=== PATIENT | male | born 1995 | race Caucasian/White ===

== ENCOUNTER 2017-01-24 22:15 | Emergency (ER) | payer SELFPAY ==
[2017-01-24 22:53] LABS: BASOPHILS % (AUTO) 1 % (0-3); EOSINOPHILS % (AUTO) 2 % (0-9); HEMATOCRIT 50 % (39-53); MEAN CORPUSCULAR HGB CONC 35.2 gm/dl (32.0-36.0); MEAN CORPUSCULAR VOLUME 83 fL (80-100); MONOCYTES % (AUTO) 6.6 % (0-12); NEUTROPHILS % (AUTO) 43.9 % (37-80)
[2017-01-24 23:04] LABS: APPEARANCE,URINE Slightly Cloudy; BILIRUBIN,URINE NEGATIVE (NEGATIVE); COLOR,URINE Yellow; GLUCOSE, URINE (UA) NEGATIVE (NEGATIVE); KETONES,URINE NEGATIVE (NEGATIVE); LEUKOCYTE ESTERASE ,URINE NEGATIVE (NEGATIVE); NITRATE,URINE NEGATIVE (NEGATIVE); OCCULT BLOOD,URINE NEGATIVE (NEG-TRACE); PH,URINE 6.5
[2017-01-24 23:11] LABS: METHADONE NEGATIVE (NEGATIVE); TRICYCLIC ANTIDEPRESSANTS NEGATIVE (NEGATIVE)
[2017-01-24 23:12] LABS: AMPHETAMINES NEGATIVE (NEGATIVE); METHAMPHETAMINES NEGATIVE (NEGATIVE); OPIATES(OP13) NEGATIVE (NEGATIVE); OXYCODONE(OXY) NEGATIVE (NEGATIVE); PROPOXYPHENE(PPX) NEGATIVE (NEGATIVE)
[2017-01-24 23:15] LABS: RBC,URINE NEG (0-3AV/HPF); WBC,URINE 0-1 (0-5AV/HPF)
[2017-01-24 23:16] LABS: ALBUMIN 4.3 gm/dl (3.4-5.0); ALT 19 IU/L (14-63); CALCIUM 9.1 mg/dl (8.5-10.1); GLOM FILT RATE 118 mL/min (>60); POTASSIUM 4.4 mMol/L (3.5-5.1); SALICYLATE < 2.8 mg/dl (2.8-30.0); SODIUM 144 mMol/L (136-145); THYROID STIMULATING HORMONE 1.702 uIU/ml (0.358-3.740)
[2017-01-24 23:29] VITALS: TEMP 97.4; O2SAT 100
[2017-01-25 00:10] VITALS: BP 121/76; PULSE 66; RESP 18
== END 2017-01-25 00:05 | disposition home or self-care (01) | DRG 918 ==
LOC: ED 22:15
DX: T42.4X4A Poisoning by benzodiazepines, undetermined, initial encounter (principal)
CPT/HCPCS: 80053; 80305; 80307; 81001; 84443; 85025; 93005; 99284